=== PATIENT | female | born 1980 | race Caucasian/White ===

== ENCOUNTER 2017-01-12 01:02 | Emergency (ER) | payer MEDICARE ==
[2013-10-16 08:01] VITALS: BMI 41.6
[~2017-01-12 01:02] MED LIST: ELAVIL25 MG PO; NORCO 10/325 TA1 TA1 PO; PERCOCET 10/3251 TA1 PO; PRINIVIL20 MG PO; XANAX1 MG PO
[2017-01-12 02:38] LABS: BASOPHILS 0.3 % (0.0-2.0); EOSINOPHILS 1.5 % (0-7); HEMATOCRIT 35.1 % (36.0-48.0); HEMOGLOBIN 11.3 g/dL (12-16); IMMATURE GRANULOCYTES 0.3 % (0-5); LYMPHOCYTES 15.3 % (15-50); MCH 26.5 pg (26.0-34.0); MCHC 32.2 g/dL (31.0-37.0); MCV 82.2 fL (80.0-100.0); MEAN PLATELET VOLUME 9.5 fL (7.4-10.4); MONOCYTES 9.7 % (2-11); NEUTROPHILS 72.9 % (40-80); RBC 4.27 10x6/uL (4.00-5.40); RDW 14.8 % (11.5-14.5); WBC 13.4 10x3/uL (4.8-10.8)
[2017-01-12 02:41] LABS: PLATELET COUNT 310 10x3/uL (130-400)
[2017-01-12 02:47] LABS: CALC OSMOLALITY 279 mosm/kg (275-300); CALCIUM 8.5 mg/dL (8.5-10.1); CARBON DIOXIDE 25.3 mmol/L (21.0-32.0); CHLORIDE - SERUM 104 mmol/L (98-107); CREATININE - SERUM 0.6 mg/dL (0.6-1.3); GLUCOSE 97 mg/dL (74-106); SODIUM 141 mmol/L (136-145); UREA NITROGEN 9 mg/dL (7-18); eGFR NON AFRICAN AMERICAN > 90 mL/min (90-120)
[2017-01-12 02:56] LABS: APPEARANCE CLEAR (CLEAR); BILIRUBIN NEGATIVE (NEGATIVE); COLOR YELLOW (YELLOW); GLUCOSE NEGATIVE (NEGATIVE); KETONE NEGATIVE (NEGATIVE); LEUKOCYTE ESTERASE NEGATIVE (NEGATIVE); NITRITE NEGATIVE (NEGATIVE); PROTEIN NEGATIVE (NEGATIVE); SPECIFIC GRAVITY 1.015 (1.005-1.020); UROBILINOGEN NORMAL (NORMAL)
[2017-01-12 03:02] LABS: UDS - AMPHET POSITIVE QUAL (NEGATIVE); UDS - BARB NEGATIVE QUAL (NEGATIVE); UDS - BENZO POSITIVE QUAL (NEGATIVE); UDS - COCAINE POSITIVE QUAL (NEGATIVE); UDS - METH NEGATIVE QUAL (NEGATIVE); UDS - OPIATE POSITIVE QUAL (NEGATIVE); UDS - PCP NEGATIVE QUAL (NEGATIVE); UDS - THC NEGATIVE QUAL (NEGATIVE)
== END 2017-01-12 05:20 | disposition home or self-care (01) ==
LOC: D.ER 01:02
PROVIDERS: Emergency Medicine
DX: F19.10 Other psychoactive substance abuse, uncomplicated (principal); S02.2XXA Fracture of nasal bones, initial encounter for closed fracture; Y04.2XXA Assault by strike against or bumped into by another person, initial encounter; Y93.89 Activity, other specified; Y92.019 Unspecified place in single-family (private) house as the place of occurrence of the external cause; M54.5 Low back pain; I10 Essential (primary) hypertension; M79.7 Fibromyalgia; F17.200 Nicotine dependence, unspecified, uncomplicated

== ENCOUNTER 2017-02-27 17:12 | Emergency (ER) | payer MEDICARE ==
[2013-10-16 08:01] VITALS: BMI 41.6
== END 2017-02-27 18:49 | disposition home or self-care (01) ==
LOC: D.ER 17:12
DX: F41.9 Anxiety disorder, unspecified (principal); I10 Essential (primary) hypertension; F17.200 Nicotine dependence, unspecified, uncomplicated

== ENCOUNTER 2019-04-18 06:36 | Emergency (ER) | payer MEDICARE ==
[~2019-04-18] VITALS: Ht 165.1 cm; Wt 90.9 kg
[2019-04-18 06:49] VITALS: BP 159/72; Ht 165.1 cm; Wt 90.9 kg
[2019-04-18] MEDS ORDERED: VALTREX500 MG PO (06:51)
[2019-04-18] MEDS ORDERED: VISTARIL25 MG PO (07:13)
== END 2019-04-18 08:00 | disposition home or self-care (01) ==
LOC: D.ER 06:36
DX: R20.2 Paresthesia of skin (principal)